=== PATIENT | male | born 1955 | race Caucasian/White ===

== ENCOUNTER 2017-01-21 05:14 | Inpatient (IN) | payer BC ==
[2017-01-20 09:43] VITALS: BMI 27.3
[2017-01-21] VITALS (30 sets, daily range): BP systolic 75–122; BP diastolic 43–85; PULSE 57–96; RESP 8–31; Ht 185.4 cm; Wt 94.2 kg
[~2017-01-21] VITALS: Ht 185.4 cm; Wt 94.2 kg
[~2017-01-21 05:14] MED LIST: ADV25050; LORA-408; ZAFI20TA5; ZOC20
[2017-01-21] MEDS ORDERED: ROCURONIUM 50 MG INJ ONE (06:21)
[2017-01-21] MEDS ORDERED: PROPOFOL 20 ML ONE (06:21)
[2017-01-21] MEDS ORDERED: LIDOCAINE 2% (SDV) 5 ML INJ ONE (06:21)
[2017-01-21] MEDS ORDERED: GLYCOPYRROLATE 0.4 MG INJ ONE (06:21)
[2017-01-21] MEDS ORDERED: NEOSTIGMINE 3 MG/3 ML SYRINGE ONE (06:21)
[2017-01-21] MEDS ORDERED: FENTAnyl 50 MCG/ML VIAL ONE ×2 (06:22→09:19)
[2017-01-21] MEDS ORDERED: MIDAZOLAM 1 MG/ML 2 ML INJ ONE (06:22)
[2017-01-21] MEDS ORDERED: ONDANSETRON 4 MG INJ ONE (06:26)
[2017-01-21] MEDS ORDERED: DEXAMETHASONE 4 MG/ML 1 ML INJ ONE (06:26)
[2017-01-21] MEDS ORDERED: EPHEDrine SULFATE 50 MG/5 ML SYG ONE (06:27)
[2017-01-21] MEDS ORDERED: FENTAnyl 50 MCG/ML VIAL IV PRN (06:30)
[2017-01-21] MEDS ORDERED: MEPERIDINE 25 MG INJ IV PRN (06:30)
[2017-01-21] MEDS ORDERED: HYDROmorphONE (0.2 MG/ML) 10ML SYG IV PRN ×2 (06:30)
[2017-01-21] MEDS ORDERED: LABETALOL HCL 20MG INJ IV PRN (06:30)
[2017-01-21] MEDS ORDERED: MIDAZOLAM 1 MG/ML 2 ML INJ IV PRN (06:30)
[2017-01-21] MEDS ORDERED: EPHEDrine SULFATE 50 MG/5 ML SYG IV PRN (06:30)
[2017-01-21] MEDS ORDERED: morphine (1 MG/ML) 10ML SYRINGE IV PRN ×3 (06:30)
[2017-01-21] MEDS ORDERED: OXYCODONE/ACETAMINOPHEN (5/325) TAB PO PRN ×2 (06:30)
[2017-01-21] MEDS ORDERED: hydrALAzine 20 MG INJ IV PRN (06:30)
[2017-01-21] MEDS ORDERED: ONDANSETRON 4 MG INJ IV PRN ×2 (06:30→10:00)
[2017-01-21] MEDS ORDERED: ATROPINE 1 MG/10 ML SYRINGE IV PRN (06:30)
[2017-01-21] MEDS ORDERED: DIPHENHYDRAMINE 50 MG INJ IV PRN (06:30)
[2017-01-21] MEDS ORDERED: DESL5TAB29 PO (06:40)
[2017-01-21] MEDS ORDERED: ALBU8.5H3 INH (06:40)
[2017-01-21] MEDS ORDERED: MONT10TA24 PO (06:40)
--- NOTE | 2017-01-21 06:49 | HPN ---
Date/Time of Note Date/Time of Note DATE: 01/21/17 TIME: 06:48 Interval H&P Admission Note Pt. seen H&P reviewed: No system changes TAYLOR LOU MD Jan 21, 2017 06:48
[2017-01-21] MEDS ORDERED: CEFAZOLIN 2 GM/50 ML (PMX) 50 ML IVPB ONE (06:57)
[2017-01-21] MEDS ORDERED: LACTATED RINGER'S 1,000 ML IV* SCH ×2 (06:58→07:00)
[2017-01-21] MEDS ORDERED: LIDOCAINE 4% CR ONE (06:59)
--- NOTE | 2017-01-21 07:01 | PREOPHP ---
DATE OF ADMISSION: 01/21/2017 REASON FOR ADMISSION: This patient is being admitted electively on 01/21/[address] Singh. HISTORY OF PRESENT ILLNESS: This 61-year-old man has been having low back pain. The pain does radi ate down his right leg, but can also radiate down his left leg. He has been having increasing pain. He has decided to undergo a lumbar spine surgery. The patient says that he had lumbar spine surge ry in [address] Singh. During that surgery he had an L4-L5 level diskectomy. He is now being admitted for an L4-L5 laminectomy. CURRENT MEDICATIONS: Include the followin. Simvastatin 40 mg a day. 2. Montelukast 10 mg a day. 3. Desloratadine 5 mg a day. 4. Advair Diskus 250/50 one puff twice a day. 5. ProAir HFA 2 puffs q.i.d. p.r.n. 6. Lorazepam 2 mg 3 times a day p.r.n. anxiety. PAST MEDICAL HISTORY: Remarkable for asthma, allergic rhinitis, hyperlipidemia, generalized anxiety disorder. ALLERGIES: HE HAS NO KNOWN DRUG ALLERGIES. SURGICAL HISTORY: Lumbar spine surgery in 2008, left hand surgery, appendectomy, bilateral herniorr haphy. FAMILY HISTORY: Both parents are . Father after a hip fracture. Mother from bra in cancer. SOCIAL HISTORY: The patient does not smoke. He stopped smoking at least 5 to 10 years ago. He lloyd s not drink alcohol. OCCUPATION: Salesman for [employer]. REVIEW OF SYSTEMS: CONSTITUTIONAL: No chills, no weight gain, no loss of appetite, no fever, no weakness, no weight lo ss, no fatigue. OPHTHALMOLOGIC: Negative. EARS, NOSE AND THROAT: Negative. CARDIORESPIRATORY: The patient does have a history of asthma. He says that his asthma is under goo d control at this time. He denies any exertional chest pain, chest pressure. He has no history of heart disease. GASTROINTESTINAL: Negative. NEUROLOGIC: Negative. HEMATOLOGIC AND LYMPHATICS: Negative. UROLOGIC: Negative. He denies any previous problems with anesthesia. He has no bleeding disorders . PHYSICAL EXAMINATION: GENERAL: At this time reveals a well-developed man in no apparent distress. VITAL SIGNS: Temperature 97.9, blood pressure 110/70, heart rate 72. HEAD: Normocephalic. EYES: Extraocular muscles intact. NOSE AND MOUTH: Normal. NECK: Supple. No neck vein distention. LUNGS: The patient does have some very fine expiratory wheezes. HEART: Regular rhythm. No murmurs, gallops or rubs. ABDOMEN: Soft, nontender, no masses or megaly. EXTREMITIES: No peripheral edema. Pedal pulses were 2+ bilaterally. IMPRESSION: This patient is cleared for surgery. The patient does have a history of asthma, but th is has been under good control recently. I will follow the patient along with you postoperatively. Dictated By: JASMEET GARIBAY MD, ND/KODAK Conf#: [id number] DID#: [id number]
[2017-01-21] MEDS ORDERED: GELATIN SIZE 100 SPONGE ONE (07:28)
[2017-01-21] MEDS ORDERED: BUPIVACAINE 0.25% (MPF) 10 ML 10 ML VIAL ONE (07:29)
[2017-01-21] MEDS ORDERED: POLYMYXIN/BACITRACIN 1L IRRIG ONE (07:29)
[2017-01-21] MEDS ORDERED: THROMBIN 5000 UNIT VIAL ONE (07:29)
[2017-01-21] MEDS ORDERED: LABETALOL HCL 20MG INJ ONE (07:38)
[2017-01-21] MEDS ORDERED: ALBUTEROL 0.083% (NEB) 2.5 MG/3 ML AMP ONE (08:33)
[2017-01-21] MEDS ORDERED: FUROSEMIDE 20 MG INJ ONE (08:48)
[2017-01-21] MEDS: HYDROmorphONE (0.2 MG/ML) 10ML SYG IV PRN ×2 (09:37→09:48)
[2017-01-21] MEDS: FENTAnyl 50 MCG/ML VIAL IV PRN ×2 (09:42→09:49)
--- NOTE | 2017-01-21 09:53 | OPR ---
Date/Time of Note Date/Time of Note DATE: 01/21/17 TIME: 09:49 Operative Report Preoperative Diagnosis Lumbar spinal stenosis at L4 and L5 Postoperative Diagnosis Same Operation Performed Re-do central decompressive laminectomy at L4 Central decompressive laminectomy at L5 Medial facetectomy and foraminotomy L4-5 and L5-S1 bilaterally Revision of scar (7 cm) Lateral localizing lumbar radiographs Intraoperative nerve monitoring (2 hours) Surgeon: TAYLOR LOU MD assistant professor of biochemistry: JOSE YOUNGBLOOD Anesthesia: general Anesthesiologist: DENNIS ADAMS MD Estimated Blood Loss: 10 - 50 ml's Specimens Spinous process of L4 and L5 Tubes/Drains 2 medium Hemovac drains employed Complications: None Pt Condition Post Procedure: stable Disposition: PACU Operative\Procedure Findings At surgery, spinal stenosis at L4 and L5 was confirmed. Postsurgical changes at L4-5 on the left were confirmed. TAYLOR LOU MD Jan 21, 2017 09:53
--- NOTE | 2017-01-21 09:58 | RADRPT ---
PROCEDURE: Intraoperative XR. CLINICAL INDICATION: Intraoperative radiograph during lumbar spine surgery. TECHNIQUE: Spot intraoperative lateral lumbar x-ray image was provided. The images were reviewed on a high-resolution PACS workstation. COMPARISON: None available FINDINGS: Spot intraoperative lateral lumbar view were provided during lumbar spine surgery. The images demon strate metallic instrumentation at the level of L4-5 and L5-S1. The vertebral body heights are main tained. There are anterior osteophytes with mild disc-space narrowing at L4-5 and L5-S1. IMPRESSION: 1. Spot intraoperative lateral lumbar view during lumbar spine surgery were provided. 2. Please see operative report of the same day for further information. RPTAT: HGAS .Albaro Cain MD, MD Date Time Electronically viewed and signed by .Albaro Cain MD, on 01/21/2017 09:58 .S/
[2017-01-21] MEDS ORDERED: BETHANECHOL 25 MG TAB PO PRN (10:00)
[2017-01-21] MEDS ORDERED: AL HYDROX/MG HYDROX/SIMETH 30 ML CUP PO PRN (10:00)
[2017-01-21] MEDS ORDERED: DIAZEPAM 5 MG TAB PO PRN (10:00)
[2017-01-21] MEDS ORDERED: ACETAMINOPHEN 325 MG TAB PO PRN (10:00)
[2017-01-21] MEDS ORDERED: NACL 0.9% 3 ML SYG IV SCH (10:00)
[2017-01-21] MEDS ORDERED: HYDROCODONE/APAP (5/325) TAB PO PRN ×2 (10:00)
[2017-01-21] MEDS ORDERED: DIPHENHYDRAMINE 50 MG CAP PO PRN (10:00)
[2017-01-21] MEDS ORDERED: TRIMETHOBENZAMIDE 100 MG/ML VIAL IM PRN (10:00)
[2017-01-21] MEDS ORDERED: ZOLPIDEM 5 MG TAB PO PRN (10:00)
[2017-01-21] MEDS ORDERED: CEPASTAT LOZENGE MT PRN (10:00)
[2017-01-21] MEDS ORDERED: PROCHLORPERAZINE 10 MG TAB PO PRN (10:00)
[2017-01-21] MEDS ORDERED: NALOXONE (0.4 MG/ML) INJ IV PRN (10:00)
[2017-01-21] MEDS ORDERED: DIAZEPAM 5 MG/ML SYG IM PRN (10:00)
[2017-01-21] MEDS: HYDROmorphONE 0.2 MG/ML PCA IV SCH ×2 (10:01→19:55)
--- NOTE | 2017-01-21 10:21 | OPR ---
DATE OF OPERATION: 01/21/2017 PREOPERATIVE DIAGNOSES: 1. Lumbar spinal stenosis at L4 and L5. 2. Postsurgical changes L4-5 on the left. POSTOPERATIVE DIAGNOSES: 1. Lumbar spinal stenosis at L4 and L5. 2. Postsurgical changes L4 -5 on the left. OPERATION PERFORMED: 1. Redo decompressive laminectomy at L4. 2. Decompressive laminectomy at L5. 3. Medial facetectomy and foraminotomy L4-5 and L5-S1 bilaterally. 4. Revision of scar (7 cm). 5. Lateral localized lumbar radiograph. 6. Intraoperative nerve monitoring (2 hours). SURGEON: Gerson Singh MD LOGGER: JERARDO Mcmillan ANESTHESIA: General endotracheal. ANESTHESIOLOGIST: Brenden Diaz MD ESTIMATED BLOOD LOSS: 20 mL-none replaced. DRAINS: Two medium Hemovac drains employed. COMPLICATION: None. PERTINENT HISTORY AND PHYSICAL: This is a 61-year-old male with persistent back and lower extremity complaints, right greater than left, which have been unrelieved by conservative management. He has a pertinent prior history of having undergone microdiskectomy at L4-5 on the left on 09/03/2009. P reoperative workup including an MRI of the lumbar spine demonstrated lumbar spinal stenosis at L4 an d L5. Treatment options were discussed with the patient, who elected to proceed with surgery. OPERATIVE FINDINGS AT SURGERY: The patient had marked central and lateral recess stenosis at L4 and moderately severe lateral recess stenosis at L5. Baseline intraoperative nerve monitoring revealed a decrease in the left L5 potential of 40%, the right L5 potential of 50% and the left S1 potential of 30%. These all returned to normal at the completion of the surgery. OPERATIVE PROCEDURE: With the patient in supine position after satisfactory induction of general en dotracheal anesthesia by Dr. Diaz the patient was turned to the prone kneeling position on the [facility] frame. All pressure points were carefully padded. Back was prepped and draped in usual steri le fashion. Athrombic pumps were applied to the legs below the knees to prevent venous stasis durin g and after the procedure. An indwelling Day catheter was also placed preoperatively to facilitat e bladder drainage during and after the procedure. The previous scar at L4 was used as an anatomic landmark and a 7 cm incision carried out from L4 to the sacrum through skin and subcutaneous tissue to the deep fascia after skin was infiltrated with 0.25% Marcaine without epinephrine for postoperat juan analgesia. Superficial retractors were placed and hemostasis secured with electrocautery. Thro ughout the procedure, copious amounts of antibacterial irrigating solution were used to periodically irrigate the wound. The fascia was incised in midline with a hot knife and a bilateral subperioste al dissection carried out from L4 to the sacrum. Deep retractors were placed and deep hemostasis se cured with electrocautery. A second intraoperative radiograph was taken with Robinson clamps placed i n what was felt to be the spinous process of L4 and L5. This was confirmed with second x-ray. A de compressive laminectomy at L4 and L5 was then carried out using a Henrik right-angle bone rongeur, Lejennieell rongeur, Kerrison punches and curettes. Ligamentum flavum was incised with sharp dissection . The scar at L4-5 on the left was carefully dissected free from the dura using a Maya dissector . A medial facetectomy and foraminotomy was accomplished using small hand osteotome, mallet, Kerris on punches and curettes at L4-L5 and L5-S1 bilaterally. At this point, the nerve signals returned t o normal. The L4-5 disk on the right was inspected by mobilizing the L5 root on the right medially with a blunt [place] elevator and protected with D'Errico nerve retractor; however, the disk was flat and did not merit removal. The epidural hemostasis was secured with bipolar electrocautery on low s etting. The anesthesiologist was then asked to perform a Valsalva maneuver at 40 mmHg and no spinal fluid leak was noted. The wound was then closed in layers over 2 medium Hemovac drains using #1 Vi cryl Stratafix sutures on the deep paralumbar musculature and deep fascia of back, 2-0 Vicryl Strata fix sutures in subcu tissue, and a 4-0 Vicryl subcuticular cosmetic closing suture on the skin. Devonte mabond and sterile compressive dressings were applied. The patient tolerated procedure well, was th en turned to supine position onto his bed and extubated by Dr. Diaz. He was transported to the re covery room in satisfactory condition. At the conclusion of the procedure, sponge, instrument, and needle counts were all correct. NEED FOR INSPECTOR GOVERNMENT PROPERTY: During this spinal surgical procedure, my digital assistant was used to retrac t and protect the spinal nerves and dural sac. My digital assistant also employed the suction catheters to e vacuate blood from the surgical field to improve visualization of the neural structures. The assista nt was medically necessary to facilitate the completion of the surgery in a safe and expeditious man ner. [facility] regulations, as well as hospital bylaws, preclude the use of non-licensed [facility] care personnel such as operating room technicians, to perform these functions. Throughout the procedure, neural monitoring was carried out with [employer] including EMG, SSEP and MEP monitoring of the L3, L4, L5, and S1 nerve roots bilaterally along wit h spinal cord potentials. These were interpreted by neurologist employed by [employer]. Dictated By: GERSON SINGH MD TM/NTS Conf#: [id number] DID#: [id number] CC: JASMEET GARIBAY MD;*End*
[2017-01-21] MEDS: CEFAZOLIN 1 GM/50 ML (PMX) 50 ML IVPB SCH ×2 (13:08→18:31)
[2017-01-21] MEDS: DEXTROSE 5%-0.45% NACL 1,000 ML IV SCH ×3 (13:09→23:17)
[2017-01-21] MEDS ORDERED: ALBUTEROL HFA 8 GM INHALER INH PRN (13:30)
[2017-01-21] MEDS ORDERED: LORAZEPAM 1 MG TAB PO PRN (13:30)
--- NOTE | 2017-01-21 13:59 | CONS ---
DATE OF ADMISSION: 01/21/2017 DATE OF CONSULTATION: 01/21/2017 TYPE OF CONSULTATION: Medical REASON FOR CONSULTATION: To manage the patient's asthma and allergic rhinitis. Thank you, Dr. Singh, for asking me to participate in the medical management of this patient. HISTORY OF PRESENT ILLNESS: This 61-year-old man is now postop a lumbar spine surgery by Dr. Claudy hunter. The patient has been having low back pain that radiates down his right leg mostly, but can radi ate down his left leg. He has been having increasing pain. He had decided to undergo a lumbar spin e surgery because the pain had been unrelieved with medical therapy. The patient had surgery in the same area in [address] Singh. At that time, he had a L4 to L5 level diskectomy. Today, he un derwent a redo decompressive laminectomy at L4 and a decompressive laminectomy at L5. This was in t reatment of lumbar spinal stenosis at the L4 to L5 level. CURRENT MEDICATIONS: Include the followin. Simvastatin 40 mg a day. 2. Montelukast 10 mg a day. 3. Desloratadine 5 mg a day. 4. Advair Diskus 250/50 one puff twice a day. 5. ProAir HFA 2 puffs q.i.d. p.r.n. 6. Lorazepam 2 mg 3 times a day p.r.n. anxiety. PAST MEDICAL HISTORY: Remarkable for asthma, allergic rhinitis, hyperlipidemia, generalized anxiety disorder. ALLERGIES: HE HAS NO KNOWN DRUG ALLERGIES. SURGICAL HISTORY: Lumbar spine surgery in 2008, left hand surgery, appendectomy, bilateral herniorr haphy. FAMILY HISTORY: Both parents are . Father after a hip fracture. Mother from bra in cancer. SOCIAL HISTORY: The patient does not smoke. He stopped smoking at least 5 to 10 years ago. He lloyd s not drink alcohol. OCCUPATION: Salesman. PHYSICAL EXAMINATION: GENERAL: At this time reveals a well-developed man who is a little lethargic but arouses easily to verbal stimuli. The patient is just coming out of general anesthesia. VITAL SIGNS: Pulse of 68, respirations 20, blood pressure 122/69, O2 saturation 94% on 2 liter nasa l cannula. HEENT: Head normocephalic. Eyes: Extraocular muscles intact. Nose and mouth are normal. NECK: Supple. No neck vein distention. LUNGS: Clear to auscultation. HEART: Regular rhythm. No murmurs, gallops or rubs. ABDOMEN: Soft, nontender. EXTREMITIES: No peripheral edema. IMPRESSION: This patient is stable after surgery today. His blood pressure is normal. His lungs a re clear and he denies any shortness of breath or wheezing. The patient is overall doing well. I w ill manage the patient's asthma, allergic rhinitis, hyperlipidemia and generalized anxiety disorder. PLAN: 1. Resume routine medications. 2. Check labs in the morning. 3. Postop lumbar spine surgery protocol. 4. I will follow the patient along with you medically. Dictated By: JASMEET GARIBAY MD, ND/KODAK Conf#: [id number] DID#: [id number]
[2017-01-21] MEDS: RANITIDINE 150 MG TAB PO SCH (20:59)
[2017-01-21] MEDS: SALMETEROL/FLUTICASONE 250/50 INHA INH SCH (20:59)
[2017-01-21] MEDS ORDERED: MONTELUKAST 10 MG TAB PO SCH (21:00)
[2017-01-22] MEDS: CEFAZOLIN 1 GM/50 ML (PMX) 50 ML IVPB SCH ×2 (00:08→06:20)
[2017-01-22 00:20] VITALS: BP 99/64; RESP 18
[2017-01-22 03:00] VITALS: PULSE 58; RESP 17
[2017-01-22 04:10] VITALS: BP 105/62; PULSE 62; RESP 17
[2017-01-22 05:14] LABS: POTASSIUM 4.2 mmol/L (3.5-5.1)
[2017-01-22 05:16] LABS: CREATININE 0.8 mg/dl (0.61-1.24)
[2017-01-22 05:17] LABS: CALCIUM 8.4 mg/dl (8.4-10.2)
[2017-01-22 05:31] LABS: HEMATOCRIT 33.6 % (42.0-52.0); HEMOGLOBIN 11.4 g/dl (14.0-18.0)
--- NOTE | 2017-01-22 07:14 | PN ---
Date/Time of Note Date/Time of Note DATE: 01/22/17 TIME: 07:12 Assessment/Plan Lines/Catheters IV Catheter Type (from Nrsg): Saline Lock Day in Place (from Nrsg): Yes Subjective 24 Hr Interval Summary Patient is postop day #1 from lumbar decompression. He is feeling better today , he denies any leg pain. Neurovascular structures are intact. Vital signs are stable. Hemovac drain overnight was 20 cc, this was discontinued today and incision is healing well. Hemoglobin is 11 today. He is tolerating diet. Plan for today is to DC Day and progress ambulation. He may be discharged later today if he is cleared by PT and internal medicine. Discharge instructions reviewed with patient Exam/Review of Systems Vital Signs Vitals Vital Signs Date Time Temp Pulse Resp B/P Pulse Ox O2 Delivery O2 Flow Rate FiO2 01/22/17 04:10 98.7 62 17 105/62 98 Room Air 01/21/17 14:15 2.0 Intake and Output 01/21/17 01/21/17 01/22/17 15:00 23:00 07:00 Intake Total 2000 ml 1580 ml 1200 ml Output Total 240 ml 1290 ml 1020 ml Balance 1760 ml 290 ml 180 ml Results Result Diagram: 01/22/17 0440 01/22/17 0440 SRINIVASA SINGH Jan 22, 2017 07:14
[2017-01-22] MEDS: SALMETEROL/FLUTICASONE 250/50 INHA INH SCH (07:49)
[2017-01-22] MEDS ORDERED: BETHANECHOL 25 MG TAB PO PRN (08:00)
[2017-01-22 08:10] VITALS: BP 126/85; RESP 20
[2017-01-22] MEDS ORDERED: ASCORBIC ACID 500 MG TAB PO SCH (09:00)
[2017-01-22] MEDS ORDERED: DOCUSATE SODIUM 100 MG CAP PO SCH (09:00)
[2017-01-22] MEDS ORDERED: ATORVASTATIN 20 MG TAB PO SCH (09:00)
[2017-01-22] MEDS ORDERED: LORATADINE 10 MG TAB PO SCH (09:00)
[2017-01-22 09:06] VITALS: BP 119/76; RESP 20
[2017-01-22] MEDS: FERROUS SULFATE (EC) 325 MG TAB PO SCH ×2 (09:29→12:23)
[2017-01-22] MEDS: RANITIDINE 150 MG TAB PO SCH (09:29)
--- NOTE | 2017-01-22 10:28 | CONS ---
Date/Time of Note Date/Time of Note DATE: 01/22/17 TIME: 10:26 Assessment/Plan Assessment/Plan Chief Complaint/Hosp Course 1. he is 1 day post op a lumbar spine surgery . 2. He is doing well and can be discharged to home today . Problems: Consultation Date/Type/Reason Admit Date/Time Jan 21, 2017 at 05:14 Initial Consult Date 24 HR Interval Summary Free Text/Dictation He is up walking with PT and doing well . Constitutional: improved, no complaints Exam/Review of Systems Vital Signs Vitals Vital Signs Date Time Temp Pulse Resp B/P Pulse Ox O2 Delivery O2 Flow Rate FiO2 01/22/17 09:06 98.2 72 20 119/76 96 01/22/17 04:10 Room Air 01/21/17 14:15 2.0 Intake and Output 01/21/17 01/21/17 01/22/17 15:00 23:00 07:00 Intake Total 2000 ml 1580 ml 1200 ml Output Total 240 ml 1290 ml 1020 ml Balance 1760 ml 290 ml 180 ml Exam Constitutional: alert, oriented, well developed Respiratory: clear to auscultation, normal air movement Cardiovascular: regular rate and rhythm Musculoskeletal: nl extremities to inspection Results Result Diagram: 01/22/17 0440 01/22/17 0440 Results 24 hrs Laboratory Tests Test 01/22/17 04:40 Hemoglobin 11.4 L Hematocrit 33.6 L Sodium Level 137 Potassium Level 4.2 Chloride Level 103 Carbon Dioxide Level 26 Anion Gap 12 Blood Urea Nitrogen 15 Creatinine 0.80 Glucose Level 145 Calcium Level 8.4 Medications Medications Current Medications Lactated Ringer's 1,000 ml @ 20 mls/hr Q24H IV* ; Start 01/21/17 at 06:58; Stop 01/23/17 at 08:57 Lactated Ringer's 1,000 ml @ 20 mls/hr Q24H IV* ; Start 01/21/17 at 07:00; Stop 01/23/17 at 08:59 Dextrose/Sodium Chloride (D5-1/2ns) 1,000 ml @ 100 mls/hr Q10H IV Last administered on 01/21/17t 23:17; Admin Dose 100 MLS/HR; Start 01/21/17 at 09:45 Acetaminophen/ Hydrocodone Bitart (Cuthbert (5/325)) 1 tab Q4H PRN PO PAIN LEVEL 1 -5; Start 01/21/17 at 10:00 Acetaminophen/ Hydrocodone Bitart (Cuthbert (5/325)) 2 tab Q4H PRN PO PAIN LEVEL 6 -10 Last administered on 01/22/17 07:49; Admin Dose 2 TAB; Start 01/21/17 at 10: 00 Zolpidem Tartrate (Ambien) 5 mg HS PRN PO INSOMNIA; Start 01/21/17 at 10:00 Prochlorperazine (Compazine) 10 mg Q4H PRN PO NAUSEA AND/OR VOMITING; Start 01/21/17 at 10:00 Trimethobenzamide HCl (Tigan) 200 mg Q4H PRN IM NAUSEA AND/OR VOMITING; Start 01/21/17 at 10:00 Ondansetron HCl (Zofran Inj) 4 mg Q6H PRN IV NAUSEA AND/OR VOMITING Last administered on 01/21/17 19:58; Admin Dose 4 MG; Start 01/21/17 at 10:00 Al Hydrox/Mg Hydrox/Simethicone (Mag-Al Plus) 15 ml Q4H PRN PO CONSTIPATION; Start 01/21/17 at 10:00 Docusate Sodium (Colace) 100 mg BID PO Last administered on 01/22/17 09:29; Admin Dose 100 MG; Start 01/22/17 at 09:00 Acetaminophen (Tylenol Tab) 650 mg Q4H PRN PO TEMP GREATER THAN 101F OR W[place]MAN; Start 01/21/17 at 10:00 Ascorbic Acid (Vitamin C) 1,000 mg BID PO Last administered on 01/22/17 09:29; Admin Dose 1,000 MG; Start 01/22/17 at 09:00 Ferrous Sulfate (Ferrous Sulfate (Ec)) 325 mg TID PO Last administered on 09:29; Admin Dose 325 MG; Start 01/22/17 at 09:00 Ranitidine HCl (Zantac) 150 mg BID PO Last administered on 01/22/17 09:29; Admin Dose 150 MG; Start 01/21/17 at 21:00 Diazepam (Valium) 5 mg Q4H PRN PO MUSCLE SPASMS; Start 01/21/17 at 10:00 Diazepam (Valium) 5 mg Q4H PRN IM MUSCLE SPASMS; Start 01/21/17 at 10:00 Phenol (Cepastat Lozenge) 1 lozenge PRN PRN MT SORE THROAT; Start 01/21/17 at 10 :00 Bethanechol Chloride (Urecholine) 25 mg PRN PRN PO UNABLE TO VOID Last administered on 01/22/17 07:49; Admin Dose 25 MG; Start 01/21/17 at 10:00 Diphenhydramine HCl (Benadryl) 50 mg Q6H PRN PO PRURITUS; Start 01/21/17 at 10: 00 Hydromorphone HCl (Dilaudid TORCH CUTTER) Q4PCA IV Last administered on 01/21/17 19:55 ; Admin Dose 6 MG; Start 01/21/17 at 10:00 Naloxone HCl (Narcan) 0.2 mg Q2M PRN IV RR 8 BREATHS/MIN OR LESS; Start at 10:00 Albuterol (Ventolin Hfa) 2 puff Q6H PRN INH WHEEZING AND SOB; Start 01/21/17 at 13:30 Lorazepam (Ativan) 2 mg TID PRN PO ANXIETY; Start 01/21/17 at 13:30 Montelukast Sodium (Singulair) 10 mg QHS PO Last administered on 01/21/17 20:59 ; Admin Dose 10 MG; Start 01/21/17 at 21:00 Salmeterol Xinafoate/ Fluticasone (Advair 250/50 Diskus) 1 inh BID INH Last administered on 01/22/17 07:49; Admin Dose 1 INH; Start 01/21/17 at 21:00 Loratadine (Claritin) 10 mg DAILY PO Last administered on 01/22/17 09:29; Admin Dose 10 MG; Start 01/22/17 at 09:00 Atorvastatin Calcium (Lipitor) 20 mg DAILY PO Last administered on 01/22/17 09: 29; Admin Dose 20 MG; Start 01/22/17 at 09:00 Bethanechol Chloride (Urecholine) 25 mg PRN PRN PO UNABLE TO VOID; Start at 08:00 JASMEET GARIBAY MD Jan 22, 2017 10:28
--- NOTE | 2017-01-22 10:29 | PDOCDIS ---
Discharge Instructions CONDITION Patient Condition: Good HOME CARE INSTRUCTIONS: Diet Instructions: Low Fat /Cholesterol ACTIVITY: Activity Restrictions: Slowly Increase Activity Rest between Activity Avoid heavy lifting Do not Drive Avoid Heavy Housework Bathing Restrictions: Shower FOLLOW UP/APPOINTMENTS Appointments JASMEET Mahoney MD Jan 22, 2017 10:29
[2017-01-22 11:10] LABS: ADD UMIC YES; URINE BILIRUBIN (Dip) NEGATIVE (NEGATIVE); URINE BLOOD (Dip) TRACE (NEGATIVE); URINE COLOR LT. YELLOW (YELLOW); URINE GLUCOSE (Dip) NEGATIVE (NEGATIVE); URINE KETONES (Dip) NEGATIVE (NEGATIVE); URINE LEUKOCYTE ESTERASE (Dip) NEGATIVE (NEGATIVE); URINE NITRITE (Dip) NEGATIVE (NEGATIVE); URINE TOTAL PROTEIN (Dip) NEGATIVE (NEGATIVE); URINE UROBILINOGEN (Dip) 0.2 E.U./dL (0.1-1.0)
[2017-01-22 11:28] LABS: URINE RBCS 0-2 /HPF (0)
== END 2017-01-22 13:15 | disposition home or self-care (01) | DRG 517 ==
LOC: REC 05:14 → MS1 10:39
PROVIDERS: ADMIT Orthopaedic Surgery; ATTEND Orthopaedic Surgery
PROC: 4A11X4G Monitoring of Peripheral Nervous Electrical Activity, Intraoperative, External Approach (ICD-10-PCS; 2017-01-21)
PROC: 01NB0ZZ Release Lumbar Nerve, Open Approach (ICD-10-PCS; principal; 2017-01-21 07:00)
DX: M48.06 Spinal stenosis, lumbar region (principal); E78.5 Hyperlipidemia, unspecified; J45.909 Unspecified asthma, uncomplicated
CPT/HCPCS: 72020; 80048; 81001; 81003; 85014; 85018; 86850; 86900; 86901; 86920; 87086; 97116; 97162; 97530; J1940; J0690; J1100; J1170; J2250; J2405; J2710; J3010; J7042; J7120